=== PATIENT | male | born 2000 | race Caucasian/White ===

== ENCOUNTER 2023-12-10 15:59 | Observation (INO) | payer OTHER ==
--- NOTE | 2023-12-10 16:07 | ERPHSYRPT ---
- History of Present Illness Time Seen by Provider: 12/10/23 16:07 Source: EMS Exam Limitations: clinical condition Physician History: This is a 23-year-old white male patient who was brought to the emergency department by the police lieutenant precinct service. The patient lives in [place] and is staying at one of the local hotels because he is working at a job in this area. The patient's called the police to do a welfare check on adult. The last time the patient's spoke to her was approximately 8:30 PM last night. He did not show up for work and she has been unable to contact him. When the law enforcement showed up, patient had altered mental status. Patient was found to have "candy bar" of both mushrooms and THC. Patient's spouse says that he does not ordinarily do these things but is working with people that do. Upon arrival to the emergency department, the patient's vital signs are stable. He is mildly lethargic but does awaken to voice is. He seems confused. Patient is not answering questions at this time. However, he is aware that we need a urine specimen and when we opened up a Spivey catheter kit, he knew what the Spivey catheter is and was refusing placement. There is no history of medical issues at this time. There is also no history of head trauma at this time. It is unclear at this time whether this was a suicide attempt or simply taking the "candy bars" for recreational purposes. Again, the patient's spouse says that he does not, as far she knows uses recreational drugs. She also states she does not think he is suicidal. Timing/Duration: today Severity of Symptoms-Max: moderate Severity of Symptoms-Current: moderate Context related to: other Suicidal thoughts: ingestion Associated Symptoms: confused (Clear at this time), other (Mildly lethargic) Previous symptoms: no prior history, no recent treatment Allergies/Adverse Reactions: No Known Drug Allergies Allergy (Unverified 12/10/23 16:04) Home Medications: No Reportable Medications [No Reported Medications] 12/10/23 [History] Travel Risk - International Travel Have you traveled outside of the country in past 3 weeks: No - Emerging Infectious Disease Are you exhibiting symptoms associated with any current EIDs: No - Vaccine Status Hx Covid Vaccintation/Booster/Date Given: No - Past Medical History Pertinent Past Medical History: No Neurological History: No Pertinent History ENT History: No Pertinent History Cardiac History: No Pertinent History Respiratory History: No Pertinent History Endocrine Medical History: No Pertinent History Musculoskeletal History: No Pertinent History GI Medical History: No Pertinent History History: No Pertinent History Psycho-Social History: No Pertinent History Male Reproductive Disorders: No Pertinent History - Past Surgical History Past Surgical History: No - Review of Systems Constitutional: Lethargy (Mild) Eyes: No Symptoms Ears, Nose, & Throat: No Symptoms Respiratory: No Symptoms Cardiac: No Symptoms Abdominal/Gastrointestinal: No Symptoms Genitourinary Symptoms: No Symptoms Musculoskeletal: No Symptoms Skin: No Symptoms Neurological: Lethargy (Mild with confusion) Psychological: No Symptoms Endocrine: No Symptoms Hematologic/Lymphatic: No Symptoms Immunological/Allergic: No Symptoms All Other Systems: Reviewed and Negative - Nursing Vital Signs Nursing Vital Signs: Initial Vital Signs Temperature 97.6 F 12/10/23 16:08 Pulse Rate 87 12/10/23 16:08 Respiratory Rate 15 12/10/23 16:08 Blood Pressure 106/70 12/10/23 16:08 O2 Sat by Pulse Oximetry 93 L 12/10/23 16:08 Pain Scale Pain Intensity 0 - Physical Exam General Appearance: no apparent distress, lethargy (Mild), obese Eyes, Ears, Nose, Throat Exam: normal ENT inspection, TMs normal, moist mucous membranes Neck Exam: normal inspection, non-tender, supple, full range of motion Respiratory Exam: normal breath sounds, lungs clear, No chest tenderness, No respiratory distress Cardiovascular Exam: regular rate/rhythm, normal heart sounds, normal peripheral pulses Gastrointestinal/Abdominal Exam: soft, normal bowel sounds, No tenderness Neurological Exam: floor tech II-XII nml as tested (Mildly lethargic. Patient is confused and difficult to assess him neurologically. He is moving all his extremities and does not appear to have a focal neurologic issue at this time), anxious Behavior/Eye Contact/Speech: good eye contact, intoxicated appearance Skin Exam: normal color, warm, dry SpO2 Interpretation: normal O2 Delivery: Room Air - Course Nursing assessment & vital signs reviewed: Yes EKG Interpreted by Me: RATE (80), Sinus Rhythm, NORMAL AXIS, NORMAL INTERVALS, NORMAL QRS, NORMAL ST-T, Other (No acute ischemic changes on today's twelve-lead EKG. There are no comparison twelve-lead EKGs available) Ordered Tests: Active Orders 24 hr Category Date Time Status Ice House Supervisor STAT Care 12/10/23 16:08 Active EKG-ER Only STAT Care 12/10/23 16:07 Active IV Insertion STAT Care 12/10/23 16:07 Active POCT Glucose Check STAT Care 12/10/23 16:07 Active cath [Cath for Specimen-Straight] STAT Care 12/10/23 16:18 Active ABDOMEN AND PELVIS W/0 CONTRAS [CT] Stat Exams 12/10/23 18:58 Taken HEAD WITHOUT CONTRAST [CT] Stat Exams 12/10/23 16:08 Completed ACETAMINOPHEN Stat Lab 12/10/23 16:25 Completed CBC W DIFF Stat Lab 12/10/23 16:07 Completed CK-Creatinine Phosphokinase Stat Lab 12/10/23 16:42 Completed CMP Stat Lab 12/10/23 16:25 Completed CMP Stat Lab 12/10/23 22:45 Completed CULTURE,URINE Stat Lab 12/10/23 16:18 Received ETHYL ALCOHOL Stat Lab 12/10/23 16:25 Completed SALICYLATE Stat Lab 12/10/23 16:25 Completed UA W/RFX UR CULTURE Stat Lab 12/10/23 16:18 Completed Urine Triage Profile Stat Lab 12/10/23 16:18 Completed Medication Summary Discontinued Medications Generic Name Dose Route Start Last Admin Trade Name Freq PRN Reason Stop Dose Admin Sodium Chloride 1,000 mls @ 999 mls/hr 12/10/23 16:07 12/10/23 17:29 Sodium Chloride 0.9% 1000 Ml IV 12/10/23 17:07 Infused .Q1H1M STA Infusion Sodium Chloride Confirm 12/10/23 16:20 Sodium Chloride 0.9% 1000 Ml Administered 12/10/23 16:21 Dose 1,000 mls @ ud .ROUTE .STK-MED ONE Sodium Chloride 1,000 mls @ 999 mls/hr 12/10/23 21:05 12/10/23 22:12 Sodium Chloride 0.9% 1000 Ml IV 12/10/23 22:05 Infused .Q1H1M STA Infusion Sodium Chloride Confirm 12/10/23 21:10 Sodium Chloride 0.9% 1000 Ml Administered 12/10/23 21:11 Dose 1,000 mls @ ud .ROUTE .STK-MED ONE Ondansetron HCl 4 mg 12/10/23 16:07 12/10/23 16:28 Ondansetron Hcl 4 Mg/2 Ml Vial IV 12/10/23 16:08 4 mg STAT ONE Administration Ondansetron HCl Confirm 12/10/23 16:20 Ondansetron Hcl 4 Mg/2 Ml Vial Administered 12/10/23 16:21 Dose 4 mg .ROUTE .[facility]-MED ONE Lab/Rad Data: Laboratory Result Diagrams 12/10/23 16:07 12/10/23 22:45 Laboratory Results 12/10/23 12/10/23 12/10/23 Range/Units 22:45 16:42 16:25 WBC (4.0-10.5) x10^3/uL RBC (4.1-5.6) x10^6/uL Hgb (12.5-18.0) g/dL Hct (42-50) % MCV (78-100) fL MCH (26-32) pg MCHC (32-36) g/dL RDW (11.5-14.0) % Plt Count (150-450) x10^3/uL MPV (7.5-11.0) fL Gran % (36.0-66.0) % Immature Gran % (Auto) (0.00-0.4) % Nucleat RBC Rel Count (0.00-0.1) % Eos # (Auto) (0-0.5) x10^3/uL Immature Gran # (Auto) (0.00-0.03) x10^3u/L Absolute Lymphs (auto) (1.0-4.6) x10^3/uL Absolute Monos (auto) (0.0-1.3) x10^3/uL Absolute Nucleated RBC (0.00-0.01) x10^3u/L Lymphocytes % (24.0-44.0) % Monocytes % (0.0-12.0) % Eosinophils % (0.00-5.0) % Basophils % (0.0-0.4) % Absolute Granulocytes (1.4-6.9) x10^3/uL Basophils # (0-0.4) x10^3/uL Sodium 143 (135-145) mmol/L Potassium 4.5 (3.5-5.1) mmol/L Chloride 110 H (98-107) mmol/L Carbon Dioxide 26 (22-30) mmol/L Anion Gap 11.5 (5-15) MEQ/L BUN 20 (9-20) mg/dL Creatinine 0.88 (0.66-1.25) mg/dL Estimated GFR 123.1 ML/MIN Glucose 92 (74-106) mg/dL Calcium 8.7 (8.4-10.2) mg/dL Total Bilirubin 1.60 H (0.2-1.3) mg/dL AST 160 H (17-59) U/L ALT 312 H (0-50) U/L Alkaline Phosphatase 59 (38-126) U/L Ammonia (9-30) umol/L Creatine Kinase 105 (55-170) U/L Serum Total Protein 6.7 (6.3-8.2) g/dL Albumin 4.0 (3.5-5.0) g/dL Urine Color (Yellow) Urine Appearance (Clear) Urine pH (4.6-8.0) Ur Specific [place] (1.005-1.030) Urine Protein (Negative) Urine Glucose (UA) (Negative) mg/dL Urine Ketones (Negative) Urine Blood (Negative) Urine Nitrite (Negative) Urine Bilirubin (Negative) Urine Urobilinogen (0.2) mg/dL Ur Leukocyte Esterase (Negative) U Hyaline Cast (Auto) (0-2) /LPF Urine Microscopic RBC (0-5) /HPF Urine Microscopic WBC (0-5) /HPF Ur Epithelial Cells (None Seen) /HPF Urine Bacteria (None Seen) /HPF Urine Culture Reflexed (NO) Salicylates (2-20) mg/dL Urine Opiates Level (NEGATIVE) Ur Methadone (NEGATIVE) Acetaminophen (10-30) ug/ml Urine Barbiturates (NEGATIVE) Ur Phencyclidine (PCP) (NEGATIVE) Urine Amphetamine (NEGATIVE) U Benzodiazepine Level (NEGATIVE) Urine Cocaine (NEGATIVE) Urine Marijuana (THC) (NEGATIVE) Ethyl Alcohol (0-10) mg/dL Influenza Type A Ag NEGATIVE (NEGATIVE) Influenza Type B Ag NEGATIVE (NEGATIVE) RSV (PCR) NEGATIVE (NEGATIVE) SARS-CoV-2 (PCR) NEGATIVE (NEGATIVE) 12/10/23 12/10/23 12/10/23 Range/Units 16:25 16:25 16:18 WBC (4.0-10.5) x10^3/uL RBC (4.1-5.6) x10^6/uL Hgb (12.5-18.0) g/dL Hct (42-50) % MCV (78-100) fL MCH (26-32) pg MCHC (32-36) g/dL RDW (11.5-14.0) % Plt Count (150-450) x10^3/uL MPV (7.5-11.0) fL Gran % (36.0-66.0) % Immature Gran % (Auto) (0.00-0.4) % Nucleat RBC Rel Count (0.00-0.1) % Eos # (Auto) (0-0.5) x10^3/uL Immature Gran # (Auto) (0.00-0.03) x10^3u/L Absolute Lymphs (auto) (1.0-4.6) x10^3/uL Absolute Monos (auto) (0.0-1.3) x10^3/uL Absolute Nucleated RBC (0.00-0.01) x10^3u/L Lymphocytes % (24.0-44.0) % Monocytes % (0.0-12.0) % Eosinophils % (0.00-5.0) % Basophils % (0.0-0.4) % Absolute Granulocytes (1.4-6.9) x10^3/uL Basophils # (0-0.4) x10^3/uL Sodium 142 (135-145) mmol/L Potassium 4.0 (3.5-5.1) mmol/L Chloride 107 (98-107) mmol/L Carbon Dioxide 24 (22-30) mmol/L Anion Gap 15.3 H (5-15) MEQ/L BUN 24 H (9-20) mg/dL Creatinine 1.07 (0.66-1.25) mg/dL Estimated GFR 99.4 ML/MIN Glucose 148 H (74-106) mg/dL Calcium 9.3 (8.4-10.2) mg/dL Total Bilirubin 1.80 H (0.2-1.3) mg/dL AST 140 H (17-59) U/L ALT 224 H (0-50) U/L Alkaline Phosphatase 65 (38-126) U/L Ammonia < 9 L (9-30) umol/L Creatine Kinase (55-170) U/L Serum Total Protein 7.7 (6.3-8.2) g/dL Albumin 4.7 (3.5-5.0) g/dL Urine Color (Yellow) Urine Appearance (Clear) Urine pH (4.6-8.0) Ur Specific [place] (1.005-1.030) Urine Protein (Negative) Urine Glucose (UA) (Negative) mg/dL Urine Ketones (Negative) Urine Blood (Negative) Urine Nitrite (Negative) Urine Bilirubin (Negative) Urine Urobilinogen (0.2) mg/dL Ur Leukocyte Esterase (Negative) U Hyaline Cast (Auto) (0-2) /LPF Urine Microscopic RBC (0-5) /HPF Urine Microscopic WBC (0-5) /HPF Ur Epithelial Cells (None Seen) /HPF Urine Bacteria (None Seen) /HPF Urine Culture Reflexed (NO) Salicylates < 1.0 L (2-20) mg/dL Urine Opiates Level NEGATIVE (NEGATIVE) Ur Methadone NEGATIVE (NEGATIVE) Acetaminophen < 10 L (10-30) ug/ml Urine Barbiturates NEGATIVE (NEGATIVE) Ur Phencyclidine (PCP) NEGATIVE (NEGATIVE) Urine Amphetamine NEGATIVE (NEGATIVE) U Benzodiazepine Level NEGATIVE (NEGATIVE) Urine Cocaine NEGATIVE (NEGATIVE) Urine Marijuana (THC) POSITIVE A (NEGATIVE) Ethyl Alcohol < 10 (0-10) mg/dL Influenza Type A Ag (NEGATIVE) Influenza Type B Ag (NEGATIVE) RSV (PCR) (NEGATIVE) SARS-CoV-2 (PCR) (NEGATIVE) 12/10/23 12/10/23 Range/Units 16:18 16:07 WBC 12.3 H (4.0-10.5) x10^3/uL RBC 4.59 (4.1-5.6) x10^6/uL Hgb 14.6 (12.5-18.0) g/dL Hct 43.1 (42-50) % MCV 93.9 (78-100) fL MCH 31.8 (26-32) pg MCHC 33.9 (32-36) g/dL RDW 13.2 (11.5-14.0) % Plt Count 275 (150-450) x10^3/uL MPV 10.3 (7.5-11.0) fL Gran % 86.8 H (36.0-66.0) % Immature Gran % (Auto) 0.5 H (0.00-0.4) % Nucleat RBC Rel Count 0.0 (0.00-0.1) % Eos # (Auto) 0 (0-0.5) x10^3/uL Immature Gran # (Auto) 0.06 H (0.00-0.03) x10^3u/L Absolute Lymphs (auto) 0.90 L (1.0-4.6) x10^3/uL Absolute Monos (auto) 0.64 (0.0-1.3) x10^3/uL Absolute Nucleated RBC 0.00 (0.00-0.01) x10^3u/L Lymphocytes % 7.3 L (24.0-44.0) % Monocytes % 5.2 (0.0-12.0) % Eosinophils % 0.0 (0.00-5.0) % Basophils % 0.2 (0.0-0.4) % Absolute Granulocytes 10.68 H (1.4-6.9) x10^3/uL Basophils # 0.02 (0-0.4) x10^3/uL Sodium (135-145) mmol/L Potassium (3.5-5.1) mmol/L Chloride (98-107) mmol/L Carbon Dioxide (22-30) mmol/L Anion Gap (5-15) MEQ/L BUN (9-20) mg/dL Creatinine (0.66-1.25) mg/dL Estimated GFR ML/MIN Glucose (74-106) mg/dL Calcium (8.4-10.2) mg/dL Total Bilirubin (0.2-1.3) mg/dL AST (17-59) U/L ALT (0-50) U/L Alkaline Phosphatase (38-126) U/L Ammonia (9-30) umol/L Creatine Kinase (55-170) U/L Serum Total Protein (6.3-8.2) g/dL Albumin (3.5-5.0) g/dL Urine Color Yellow (Yellow) Urine Appearance Clear (Clear) Urine pH 6.0 (4.6-8.0) Ur Specific [place] 1.020 (1.005-1.030) Urine Protein Negative (Negative) Urine Glucose (UA) Negative (Negative) mg/dL Urine Ketones Negative (Negative) Urine Blood Negative (Negative) Urine Nitrite Negative (Negative) Urine Bilirubin Negative (Negative) Urine Urobilinogen 1.0 A (0.2) mg/dL Ur Leukocyte Esterase Trace A (Negative) U Hyaline Cast (Auto) 3-5 A (0-2) /LPF Urine Microscopic RBC 0-2 (0-5) /HPF Urine Microscopic WBC 0-2 (0-5) /HPF Ur Epithelial Cells Rare (None Seen) /HPF Urine Bacteria None Seen (None Seen) /HPF Urine Culture Reflexed ORDERED SEPARATELY (NO) Salicylates (2-20) mg/dL Urine Opiates Level (NEGATIVE) Ur Methadone (NEGATIVE) Acetaminophen (10-30) ug/ml Urine Barbiturates (NEGATIVE) Ur Phencyclidine (PCP) (NEGATIVE) Urine Amphetamine (NEGATIVE) U Benzodiazepine Level (NEGATIVE) Urine Cocaine (NEGATIVE) Urine Marijuana (THC) (NEGATIVE) Ethyl Alcohol (0-10) mg/dL Influenza Type A Ag (NEGATIVE) Influenza Type B Ag (NEGATIVE) RSV (PCR) (NEGATIVE) SARS-CoV-2 (PCR) (NEGATIVE) - Progress Progress: improved, re-examined Progress Note: 12/10/23 16:30 This patient's medical issue was at least moderate complexity. Depending on the initial workup results and response to our therapy, the patient may have a high complexity medical issue. The initial workup and complexity of his medical issue in this patient is based on review of the patient's past medical history, review of patient's medication list, review of patient drug allergy list, history present illness and physical findings on examination. The workup in this patient includes placement of intravenous line, infusion normal saline solution, infusion of Zofran, CBC, CMP, urinalysis, salicylate level, acetaminophen level, ethyl alcohol level, urinalysis, urine triage, CT scan of the head, ammonia level, viral swabs. We will also contact Poison Control Center. 12/10/23 16:53 The Poison Control Center was contacted by nurse Benjamin. They are sending over recommendations for management of this patient. Briefly, a summary, includes IV hydration, watch for signs of agitation and treat with benzodiazepines. Avoid antipsychotics. Perform a twelve-lead EKG and CMP. Observe this patient until he is back to baseline. 12/10/23 20:19 I did interpret the patient's laboratory data results that have returned thus far. There is mildly elevated liver function test. We do not have baseline levels in this patient. Poison control did discuss with the instructional assistant regarding the "candy bars", that the patient ingested. One of the thoughts was to watch the liver function test after hydration. If the LFT levels are rising to treat this patient with N-acetylcysteine. The mushroom candy bar may have amanita mushroom and it which could cause significant hepatotoxicity. My plan is to do just that and to order a CT scan of the abdomen pelvis. CT scan of the abdomen pelvis without contrast was interpreted by the radiologist and I reviewed the impression. The impression states there is respiratory artifact. There is moderate bibasilar atelectasis. The remaining abdominal and pelvic CT scan without contrast is within normal limits. 12/10/23 20:55 CT scan of the head was interpreted by the radiologist and I reviewed the impression. Impression states normal CT scan of the head without contrast. 12/10/23 23:[address] Marti, the telehospitalist and reviewed the patient history, chief complaint, laboratory data, radiographic study results and twelve-lead EKG results. I also spoke with him regarding the Poison Control Center recommendations. He accepts the patient in transfer. Vero, in the Poison Control Center called back just a few minutes ago and her instructional assistant has reviewed the patient's laboratory data results and they recommend starting the N-acetylcysteine medication and they we will be faxing over the dosing and the recommended timing of obtaining repeat laboratory data. Counseled pt/family regarding: lab results, diagnosis, need for follow-up, rad results Medical Desision Making - Independent Historian Additional History obtained from: Spouse (By phone the nurses obtained additional history from the spouse. The patient has altered mental status and is unable to provide us with information on admission.) - Discussion of managment Care discussed with:: specialist (Poison Control Center. Spoke with Vero twice. After review of the repeat LFTs, instructional assistant recommends starting N-[place] tylcysteine. I spoke with Dr. Marti and he is aware.) Reviewed:: Test results, Need for additional workup Agreed on:: decision to admit Will see patient: in hospital - Diagnostic Testing Diagnostic test were ordered, analyzed, and reviewed by me: Yes Radiological Interpretation: Reviewed by me, Teleradiologist Report - Risk of complications The pt has a high risk of morbidity or mortality based on: Decision regarding hospitilization or escalation of hosp level of care - Departure Departure Disposition: In-patient Admission Clinical Impression: Overdose, Altered mental status Condition: Fair Critical Care Time: Yes Critical Care Time(excluding separately billable procedures): Critical 30-74 mins (45 minutes) Referrals: DOCTOR,NO FAMILY [NON-STAFF PHY W/O PRIVILEGES] - Follow up/PCP as directed
[2023-12-10] MEDS ORDERED: Sodium Chloride 0.9% 1000 ML 1,000 ML ONE ×2 (16:20→21:10)
[2023-12-10] MEDS ORDERED: Zofran 4 MG/2 ML VIAL ONE (16:20)
[2023-12-10] MEDS: Sodium Chloride 0.9% 1000 ML 1,000 ML IV STA ×2 (16:27→21:11)
[2023-12-10] MEDS: Zofran 4 MG/2 ML VIAL IV ONE (16:28)
[2023-12-10 16:34] LABS: Absolute Neutrophil Ct (ANC) 10.68 x10^3/uL (1.4-6.9); BASOPHIL % 0.2 % (0.0-0.4); Basophil (Absolute #) 0.02 x10^3/uL (0-0.4); Eosinophil (Absolute #) 0 x10^3/uL (0-0.5); Hematocrit 43.1 % (42-50); Hemoglobin 14.6 g/dL (12.5-18.0); IMMATURE GRAN # 0.06 x10^3u/L (0.00-0.03); IMMATURE GRAN % 0.5 % (0.00-0.4); Lymphocytes % 7.3 % (24.0-44.0); Mean Cell Volume 93.9 fL (78-100); Mean Corpuscular Hemoglobin 31.8 pg (26-32); Mean Corpuscular Hgb Concent. 33.9 g/dL (32-36); Mean Platelet Volume 10.3 fL (7.5-11.0); Monocyte (Absolute #) 0.64 x10^3/uL (0.0-1.3); Monocytes % 5.2 % (0.0-12.0); Neutrophil % 86.8 % (36.0-66.0); Platelet Count 275 x10^3/uL (150-450); Red Blood Count 4.59 x10^6/uL (4.1-5.6); Red Cell Distribution Width 13.2 % (11.5-14.0); White Blood Count 12.3 x10^3/uL (4.0-10.5)
[2023-12-10 16:52] LABS: Appearance Clear (Clear); Bacteria None Seen /HPF (None Seen); Bilirubin Negative (Negative); Blood Negative (Negative); Epithelial Cells Rare /HPF (None Seen); Glucose, Urine Negative (Negative); Ketones Negative (Negative); Leukocyte Esterase Trace (Negative); Nitrite Negative (Negative); Protein,Urine Dip Negative (Negative); RBC 0-2 /HPF (0-5); WBC 0-2 /HPF (0-5)
[2023-12-10 16:55] LABS: ADD URINE CULTURE? ORDERED SEPARATELY (NO)
[2023-12-10 17:01] LABS: ACETAMINOPHEN < 10 ug/ml (10-30); ALBUMIN 4.7 g/dL (3.5-5.0); ALKALINE PHOSPHATASE 65 U/L (38-126); ANION GAP 15.3 MEQ/L (5-15); BLOOD UREA NITROGEN 24 mg/dL (9-20); CHLORIDE 107 mmol/L (98-107); Calcium 9.3 mg/dL (8.4-10.2); Carbon Dioxide 24 mmol/L (22-30); Creatinine 1 1.07 mg/dL (0.66-1.25); EST GLOMERULAR FILTRATION RATE 99.4 ML/MIN; ETHYL ALCOHOL < 10 mg/dL (0-10); Glucose 148 mg/dL (74-106); SALICYLATE < 1.0 mg/dL (2-20); SGOT/AST 140 U/L (17-59); SGPT/ALT 224 U/L (0-50); SODIUM 142 mmol/L (135-145); Total Protein 7.7 g/dL (6.3-8.2)
[2023-12-10 17:09] LABS: INFLUENZA A NEGATIVE (NEGATIVE); INFLUENZA B NEGATIVE (NEGATIVE); RESPIRATORY SYNCTIAL VIRUS NEGATIVE (NEGATIVE); SARS-CoV-2 Xpert Express NEGATIVE (NEGATIVE)
[2023-12-10 17:21] LABS: Amphetamine,Urine NEGATIVE (NEGATIVE); Barbiturate,Urine NEGATIVE (NEGATIVE); Benzodiazepine,Urine NEGATIVE (NEGATIVE); Cocaine,Urine NEGATIVE (NEGATIVE); Methadone,Urine NEGATIVE (NEGATIVE); Opiate,Urine NEGATIVE (NEGATIVE); PCP,Urine NEGATIVE (NEGATIVE); THC,Urine POSITIVE (NEGATIVE)
--- NOTE | 2023-12-10 20:22 | XRAY ---
Indication: Altered mental status. No known injury. Multiple contiguous axial images obtained through the head without contrast. Comparison: None Normal appearing brain parenchyma, ventricles, and bony calvarium. Visualized paranasal sinuses and mastoid air cells are clear. Impression: Normal CT head without contrast exam.
[2023-12-10 23:08] LABS: ANION GAP 11.5 MEQ/L (5-15); BILIRUBIN,TOTAL 1.6 mg/dL (0.2-1.3); Calcium 8.7 mg/dL (8.4-10.2); Creatinine 1 0.88 mg/dL (0.66-1.25); EST GLOMERULAR FILTRATION RATE 123.1 ML/MIN; Potassium 4.5 mmol/L (3.5-5.1); Total Protein 6.7 g/dL (6.3-8.2)
[2023-12-11] MEDS ORDERED: Zofran 4 MG/2 ML VIAL IV PRN (00:39)
--- NOTE | 2023-12-11 00:49 | PCM.HP ---
History of Present Illness - Chief Complaint Chief Complaint: AMS History of Present Illness: is a 23 year old male with no past medical history, travelling from [place] to the area for work, and was brought in by EMS for AMS. His tried to call him all day and could not get in touch with him. So police went to the hotel for welfare check and found pt to be lethargic/altered. They found 2 "candy bars" at bedside - one was THC and the other was "mushroom". In ER, pt was lethargic but vital signs were normal and stable. He was able to maintain his airway. He was given IVF boluses, and he did come around some mentally. He did refused lewis catheter placement. Labs shows mildly elevated AST/ALT/Bili. UDS + THC. Etoh negative. CTs head and abdomen were negative. Poison control was contacted by ER physician. They do recommend treatment with N-acetylcysteine (NAC) or activated charcoal - posion control has to send these over and the recommended doses. They have been talking with Dr Zaman, ER physician. Plan to admit the pt to ICU I am seeing pt via telemedicine. He is somnolent, but wakes up to converse. He does not appear septic on my exam - Review of Systems Constitutional: No Symptoms Eyes: No Symptoms Ears, Nose, & Throat: No Symptoms Respiratory: No Symptoms Abdominal/Gastrointestinal: No Symptoms Genitourinary Symptoms: No Symptoms Musculoskeletal: No Symptoms Skin: No Symptoms Neurological: Lethargy Psychological: No Symptoms Endocrine: No Symptoms Hematologic/Lymphatic: No Symptoms Immunological/Allergic: No Symptoms Medications & Allergies Home Medications: Home Medication List No Reportable Medications [No Reported Medications] 12/10/23 [History Confirmed 12/10/23] Allergies/Adverse Reactions: Allergies Allergy/AdvReac Type Severity Reaction Status Date / Time No Known Drug Allergies Allergy Unverified 12/10/23 16:04 - Past Medical History Past Medical History: No Neurological History: No Pertinent History ENT History: No Pertinent History Cardiac History: No Pertinent History Respiratory History: No Pertinent History Endocrine Medical History: No Pertinent History Musculoskelatal History: No Pertinent History GI Medical History: No Pertinent History History: No Pertinent History Pyscho-Social History: No Pertinent History Male Reproductive Disorders: No Pertinent History Comment: Poor historian - Past Surgical History Past Surgical History: No GI Surgical History: Appendectomy Other Surgical History: Poor historian Significant Family History: alpha-1 antitrypsin deficiency - Social History Smoking Status: Unknown if ever smoked Exposure to second hand smoke: (unknown) - Social Determinants of Health Will the patient participate in the screening: Unable to obtain - Physical Exam Vital Signs: Vital Signs - 24 hr Temp Pulse Resp BP BP Pulse Ox 12/11/23 00:00 98/53 12/10/23 23:45 99/56 12/10/23 23:30 106/60 12/10/23 23:15 112/68 12/10/23 23:00 78 126/69 95 12/10/23 22:30 80 119/75 96 12/10/23 22:18 77 25 H 106/61 12/10/23 22:16 67/43 12/10/23 22:07 86 93/50 96 12/10/23 22:00 60 12 86/41 95 12/10/23 21:56 74 21 81/50 12/10/23 21:35 71 17 92/45 96 12/10/23 21:30 82 15 90/37 12/10/23 21:01 68 14 91/42 95 12/10/23 21:00 70 15 88/38 12/10/23 20:30 70 19 93/38 12/10/23 20:00 68 12 96/44 96 12/10/23 19:00 72 12 91/53 12/10/23 18:30 76 12 98/56 95 12/10/23 18:00 76 15 110/62 94 L 12/10/23 17:30 77 13 107/57 94 L 12/10/23 17:00 79 13 102/59 93 L 12/10/23 16:08 97.6 F 87 15 106/70 93 L General Appearance: no apparent distress, lethargy Eye Exam: eyes nml inspection Ears, Nose, Throat Exam: normal ENT inspection Neck Exam: normal inspection, supple, full range of motion Respiratory Exam: normal breath sounds, lungs clear Cardiovascular Exam: regular rate/rhythm, normal heart sounds Gastrointestinal/Abdomen Exam: soft, normal bowel sounds Rectal Exam: deferred Extremity Exam: normal inspection Skin Exam: normal color Results - Labs Lab/Micro Results: Lab Results-Last 24 Hours 12/10/23 12/10/23 12/10/23 Range/Units 16:07 16:18 16:18 WBC 12.3 H (4.0-10.5) x10^3/uL RBC 4.59 (4.1-5.6) x10^6/uL Hgb 14.6 (12.5-18.0) g/dL Hct 43.1 (42-50) % MCV 93.9 (78-100) fL MCH 31.8 (26-32) pg MCHC 33.9 (32-36) g/dL RDW 13.2 (11.5-14.0) % Plt Count 275 (150-450) x10^3/uL MPV 10.3 (7.5-11.0) fL Gran % 86.8 H (36.0-66.0) % Immature Gran % (Auto) 0.5 H (0.00-0.4) % Nucleat RBC Rel Count 0.0 (0.00-0.1) % Eos # (Auto) 0 (0-0.5) x10^3/uL Immature Gran # (Auto) 0.06 H (0.00-0.03) x10^3u/L Absolute Lymphs (auto) 0.90 L (1.0-4.6) x10^3/uL Absolute Monos (auto) 0.64 (0.0-1.3) x10^3/uL Absolute Nucleated RBC 0.00 (0.00-0.01) x10^3u/L Lymphocytes % 7.3 L (24.0-44.0) % Monocytes % 5.2 (0.0-12.0) % Eosinophils % 0.0 (0.00-5.0) % Basophils % 0.2 (0.0-0.4) % Absolute Granulocytes 10.68 H (1.4-6.9) x10^3/uL Basophils # 0.02 (0-0.4) x10^3/uL Sodium (135-145) mmol/L Potassium (3.5-5.1) mmol/L Chloride (98-107) mmol/L Carbon Dioxide (22-30) mmol/L Anion Gap (5-15) MEQ/L BUN (9-20) mg/dL Creatinine (0.66-1.25) mg/dL Estimated GFR ML/MIN Glucose (74-106) mg/dL Calcium (8.4-10.2) mg/dL Total Bilirubin (0.2-1.3) mg/dL AST (17-59) U/L ALT (0-50) U/L Alkaline Phosphatase (38-126) U/L Ammonia (9-30) umol/L Creatine Kinase (55-170) U/L Serum Total Protein (6.3-8.2) g/dL Albumin (3.5-5.0) g/dL Urine Color Yellow (Yellow) Urine Appearance Clear (Clear) Urine pH 6.0 (4.6-8.0) Ur Specific [place] 1.020 (1.005-1.030) Urine Protein Negative (Negative) Urine Glucose (UA) Negative (Negative) mg/dL Urine Ketones Negative (Negative) Urine Blood Negative (Negative) Urine Nitrite Negative (Negative) Urine Bilirubin Negative (Negative) Urine Urobilinogen 1.0 A (0.2) mg/dL Ur Leukocyte Esterase Trace A (Negative) U Hyaline Cast (Auto) 3-5 A (0-2) /LPF Urine Microscopic RBC 0-2 (0-5) /HPF Urine Microscopic WBC 0-2 (0-5) /HPF Ur Epithelial Cells Rare (None Seen) /HPF Urine Bacteria None Seen (None Seen) /HPF Urine Culture Reflexed ORDERED SEPARATELY (NO) Salicylates (2-20) mg/dL Urine Opiates Level NEGATIVE (NEGATIVE) Ur Methadone NEGATIVE (NEGATIVE) Acetaminophen (10-30) ug/ml Urine Barbiturates NEGATIVE (NEGATIVE) Ur Phencyclidine (PCP) NEGATIVE (NEGATIVE) Urine Amphetamine NEGATIVE (NEGATIVE) U Benzodiazepine Level NEGATIVE (NEGATIVE) Urine Cocaine NEGATIVE (NEGATIVE) Urine Marijuana (THC) POSITIVE A (NEGATIVE) Ethyl Alcohol (0-10) mg/dL Influenza Type A Ag (NEGATIVE) Influenza Type B Ag (NEGATIVE) RSV (PCR) (NEGATIVE) SARS-CoV-2 (PCR) (NEGATIVE) 12/10/23 12/10/23 12/10/23 Range/Units 16:25 16:25 16:25 WBC (4.0-10.5) x10^3/uL RBC (4.1-5.6) x10^6/uL Hgb (12.5-18.0) g/dL Hct (42-50) % MCV (78-100) fL MCH (26-32) pg MCHC (32-36) g/dL RDW (11.5-14.0) % Plt Count (150-450) x10^3/uL MPV (7.5-11.0) fL Gran % (36.0-66.0) % Immature Gran % (Auto) (0.00-0.4) % Nucleat RBC Rel Count (0.00-0.1) % Eos # (Auto) (0-0.5) x10^3/uL Immature Gran # (Auto) (0.00-0.03) x10^3u/L Absolute Lymphs (auto) (1.0-4.6) x10^3/uL Absolute Monos (auto) (0.0-1.3) x10^3/uL Absolute Nucleated RBC (0.00-0.01) x10^3u/L Lymphocytes % (24.0-44.0) % Monocytes % (0.0-12.0) % Eosinophils % (0.00-5.0) % Basophils % (0.0-0.4) % Absolute Granulocytes (1.4-6.9) x10^3/uL Basophils # (0-0.4) x10^3/uL Sodium 142 (135-145) mmol/L Potassium 4.0 (3.5-5.1) mmol/L Chloride 107 (98-107) mmol/L Carbon Dioxide 24 (22-30) mmol/L Anion Gap 15.3 H (5-15) MEQ/L BUN 24 H (9-20) mg/dL Creatinine 1.07 (0.66-1.25) mg/dL Estimated GFR 99.4 ML/MIN Glucose 148 H (74-106) mg/dL Calcium 9.3 (8.4-10.2) mg/dL Total Bilirubin 1.80 H (0.2-1.3) mg/dL AST 140 H (17-59) U/L ALT 224 H (0-50) U/L Alkaline Phosphatase 65 (38-126) U/L Ammonia < 9 L (9-30) umol/L Creatine Kinase (55-170) U/L Serum Total Protein 7.7 (6.3-8.2) g/dL Albumin 4.7 (3.5-5.0) g/dL Urine Color (Yellow) Urine Appearance (Clear) Urine pH (4.6-8.0) Ur Specific [place] (1.005-1.030) Urine Protein (Negative) Urine Glucose (UA) (Negative) mg/dL Urine Ketones (Negative) Urine Blood (Negative) Urine Nitrite (Negative) Urine Bilirubin (Negative) Urine Urobilinogen (0.2) mg/dL Ur Leukocyte Esterase (Negative) U Hyaline Cast (Auto) (0-2) /LPF Urine Microscopic RBC (0-5) /HPF Urine Microscopic WBC (0-5) /HPF Ur Epithelial Cells (None Seen) /HPF Urine Bacteria (None Seen) /HPF Urine Culture Reflexed (NO) Salicylates < 1.0 L (2-20) mg/dL Urine Opiates Level (NEGATIVE) Ur Methadone (NEGATIVE) Acetaminophen < 10 L (10-30) ug/ml Urine Barbiturates (NEGATIVE) Ur Phencyclidine (PCP) (NEGATIVE) Urine Amphetamine (NEGATIVE) U Benzodiazepine Level (NEGATIVE) Urine Cocaine (NEGATIVE) Urine Marijuana (THC) (NEGATIVE) Ethyl Alcohol < 10 (0-10) mg/dL Influenza Type A Ag NEGATIVE (NEGATIVE) Influenza Type B Ag NEGATIVE (NEGATIVE) RSV (PCR) NEGATIVE (NEGATIVE) SARS-CoV-2 (PCR) NEGATIVE (NEGATIVE) 12/10/23 12/10/23 Range/Units 16:42 22:45 WBC (4.0-10.5) x10^3/uL RBC (4.1-5.6) x10^6/uL Hgb (12.5-18.0) g/dL Hct (42-50) % MCV (78-100) fL MCH (26-32) pg MCHC (32-36) g/dL RDW (11.5-14.0) % Plt Count (150-450) x10^3/uL MPV (7.5-11.0) fL Gran % (36.0-66.0) % Immature Gran % (Auto) (0.00-0.4) % Nucleat RBC Rel Count (0.00-0.1) % Eos # (Auto) (0-0.5) x10^3/uL Immature Gran # (Auto) (0.00-0.03) x10^3u/L Absolute Lymphs (auto) (1.0-4.6) x10^3/uL Absolute Monos (auto) (0.0-1.3) x10^3/uL Absolute Nucleated RBC (0.00-0.01) x10^3u/L Lymphocytes % (24.0-44.0) % Monocytes % (0.0-12.0) % Eosinophils % (0.00-5.0) % Basophils % (0.0-0.4) % Absolute Granulocytes (1.4-6.9) x10^3/uL Basophils # (0-0.4) x10^3/uL Sodium 143 (135-145) mmol/L Potassium 4.5 (3.5-5.1) mmol/L Chloride 110 H (98-107) mmol/L Carbon Dioxide 26 (22-30) mmol/L Anion Gap 11.5 (5-15) MEQ/L BUN 20 (9-20) mg/dL Creatinine 0.88 (0.66-1.25) mg/dL Estimated GFR 123.1 ML/MIN Glucose 92 (74-106) mg/dL Calcium 8.7 (8.4-10.2) mg/dL Total Bilirubin 1.60 H (0.2-1.3) mg/dL AST 160 H (17-59) U/L ALT 312 H (0-50) U/L Alkaline Phosphatase 59 (38-126) U/L Ammonia (9-30) umol/L Creatine Kinase 105 (55-170) U/L Serum Total Protein 6.7 (6.3-8.2) g/dL Albumin 4.0 (3.5-5.0) g/dL Urine Color (Yellow) Urine Appearance (Clear) Urine pH (4.6-8.0) Ur Specific [place] (1.005-1.030) Urine Protein (Negative) Urine Glucose (UA) (Negative) mg/dL Urine Ketones (Negative) Urine Blood (Negative) Urine Nitrite (Negative) Urine Bilirubin (Negative) Urine Urobilinogen (0.2) mg/dL Ur Leukocyte Esterase (Negative) U Hyaline Cast (Auto) (0-2) /LPF Urine Microscopic RBC (0-5) /HPF Urine Microscopic WBC (0-5) /HPF Ur Epithelial Cells (None Seen) /HPF Urine Bacteria (None Seen) /HPF Urine Culture Reflexed (NO) Salicylates (2-20) mg/dL Urine Opiates Level (NEGATIVE) Ur Methadone (NEGATIVE) Acetaminophen (10-30) ug/ml Urine Barbiturates (NEGATIVE) Ur Phencyclidine (PCP) (NEGATIVE) Urine Amphetamine (NEGATIVE) U Benzodiazepine Level (NEGATIVE) Urine Cocaine (NEGATIVE) Urine Marijuana (THC) (NEGATIVE) Ethyl Alcohol (0-10) mg/dL Influenza Type A Ag (NEGATIVE) Influenza Type B Ag (NEGATIVE) RSV (PCR) (NEGATIVE) SARS-CoV-2 (PCR) (NEGATIVE) Accuchecks Date 12/10/23 Time 18:33 - Radiology Impressions Radiology Exams & Impressions: Radiology Procedures Category Date Time Status ABDOMEN AND PELVIS W/0 CONTRAS [CT] Stat Exams 12/10/23 18:58 Taken HEAD WITHOUT CONTRAST [CT] Stat Exams 12/10/23 16:08 Completed - Other Procedures and Tests Respiratory Therapy 12/11/23 00:39 EKG REPEAT IN AM Assessment/Plan (1) Altered mental status Current Visit: Yes Status: Acute Assessment & Plan: Likely related to polysubstance abuse - THC and this unknown "mushroom". Supportive measures, VS q4hr, IVF. Code(s): R41.82 - ALTERED MENTAL STATUS, UNSPECIFIED (2) Overdose Current Visit: Yes Status: Acute Assessment & Plan: THC + this unknown "mushroom" candy. Supportive measures. And given hepatotoxicity, poison control recommended treatment with eather activeted charcoal and or NAC. ER physician is in contact with poison control, and said they will be sending these meds over with the recommended doses. Meanwhile, continue supportive measures, IVF, and monitoring of LFTs Code(s): T50.901A - POISONING BY UNSP DRUG/MEDS/BIOL SUBST, ACCIDENTAL, INIT (3) Hepatotoxicity Current Visit: Yes Status: Acute Assessment & Plan: AST 140-160s, ALT 220->312, Bili 1.8->1.6. AP normal. CK normal. CT abd normal. Monitor LFTs Code(s): K71.9 - TOXIC LIVER DISEASE, UNSPECIFIED (4) Leukocytosis Current Visit: Yes Status: Acute Assessment & Plan: WBC 12s. Likely a stress response. No obvious sign of infection. UA clear Code(s): D72.829 - ELEVATED WHITE BLOOD CELL COUNT, UNSPECIFIED (5) Tetrahydrocannabinol (THC) use disorder, mild, abuse Current Visit: Yes Status: Acute Assessment & Plan: UDS + THC, supportive measures. Counseled on cessation Code(s): F12.10 - CANNABIS ABUSE, UNCOMPLICATED Telemedicine Encounter - Telemedicine Encounter Telemedicine Encounter: The entirety of this encounter was performed via Telemedicine" The pt's , Mercedez, was able to give consent to have this telemedicine visit
[2023-12-11] MEDS ORDERED: BENADRYL 50 MG/ML IV PRN (01:19)
[2023-12-11] MEDS ORDERED: solu-MEDROL 125 MG, Sterile H2O 10 ml 2 ML IV PRN (01:20)
[2023-12-11] MEDS: Sodium Chloride 0.9% 1000 ML 1,000 ML IV SCH ×2 (01:30→19:43)
[2023-12-11] MEDS: DEXTROSE IV ONE ×3 (02:36→08:38)
[2023-12-11] MEDS: WATER IV ONE ×3 (02:36→08:38)
[2023-12-11] MEDS: ACETADOTE IV ONE ×3 (02:36→08:38)
[2023-12-11 05:44] LABS: Absolute Neutrophil Ct (ANC) 6.07 x10^3/uL (1.4-6.9); BASOPHIL % 0.1 % (0.0-0.4); Basophil (Absolute #) 0.01 x10^3/uL (0-0.4); Eosinophil % 0.4 % (0.00-5.0); Eosinophil (Absolute #) 0.03 x10^3/uL (0-0.5); Hematocrit 39.4 % (42-50); Hemoglobin 13.3 g/dL (12.5-18.0); IMMATURE GRAN # 0.03 x10^3u/L (0.00-0.03); IMMATURE GRAN % 0.4 % (0.00-0.4); Lymphocyte (Absolute #) 1.15 x10^3/uL (1.0-4.6); Lymphocytes % 14.6 % (24.0-44.0); Mean Cell Volume 94.3 fL (78-100); Mean Corpuscular Hemoglobin 31.8 pg (26-32); Mean Corpuscular Hgb Concent. 33.8 g/dL (32-36); Mean Platelet Volume 10.3 fL (7.5-11.0); Monocyte (Absolute #) 0.56 x10^3/uL (0.0-1.3); Monocytes % 7.1 % (0.0-12.0); Neutrophil % 77.4 % (36.0-66.0); Platelet Count 225 x10^3/uL (150-450); Red Blood Count 4.18 x10^6/uL (4.1-5.6); Red Cell Distribution Width 13.3 % (11.5-14.0); White Blood Count 7.9 x10^3/uL (4.0-10.5)
[2023-12-11 06:16] LABS: ALBUMIN 3.9 g/dL (3.5-5.0); ANION GAP 14.3 MEQ/L (5-15); BLOOD UREA NITROGEN 17 mg/dL (9-20); CHLORIDE 109 mmol/L (98-107); Calcium 8.6 mg/dL (8.4-10.2); Carbon Dioxide 24 mmol/L (22-30); Creatinine 1 0.65 mg/dL (0.66-1.25); EST GLOMERULAR FILTRATION RATE 134.9 ML/MIN; Glucose 116 mg/dL (74-106); SGOT/AST 123 U/L (17-59); SGPT/ALT 316 U/L (0-50); SODIUM 143 mmol/L (135-145); Total Protein 6.4 g/dL (6.3-8.2)
[2023-12-11 06:41] LABS: ALKALINE PHOSPHATASE < 20 U/L (38-126)
--- NOTE | 2023-12-11 08:29 | XRAY ---
Indication: Elevated LFTs. Multiple contiguous axial images obtained through the abdomen and pelvis without contrast. Comparison: None Chest and abdomen slightly degraded by respiration artifact. Lung bases images moderate bibasilar subsegmental atelectasis, left greater than right. No effusion. Heart not enlarged. Noncontrasted stomach and bowel loops appear nonobstructed. Appendix not seen but there is suture material in the expected region of the appendix. No free fluid/air. Remaining liver, gallbladder, pancreas, spleen, adrenal glands, kidneys, ureters, bladder, and aorta are unremarkable for noncontrast exam. Osseous structures intact. No ventral or inguinal hernias. Impression: 1. Respiration artifact. 2. Bibasilar subsegmental atelectasis. 3. Remaining CT abdomen/pelvis without contrast is grossly negative.
[2023-12-11] MEDS: ENOXAPARIN SODIUM SQ SCH (10:20)
[2023-12-11 22:54] LABS: PROTIME 10.9 SECONDS (9.4-12.5)
[2023-12-11 23:03] LABS: ACETAMINOPHEN < 10 ug/ml (10-30); ALBUMIN 3.5 g/dL (3.5-5.0); ALKALINE PHOSPHATASE 53 U/L (38-126); ANION GAP 10.8 MEQ/L (5-15); BLOOD UREA NITROGEN 14 mg/dL (9-20); CHLORIDE 111 mmol/L (98-107); Calcium 8.5 mg/dL (8.4-10.2); Carbon Dioxide 23 mmol/L (22-30); Creatinine 1 0.76 mg/dL (0.66-1.25); EST GLOMERULAR FILTRATION RATE 128.7 ML/MIN; Glucose 123 mg/dL (74-106); Potassium 3.4 mmol/L (3.5-5.1); SGOT/AST 60 U/L (17-59); SGPT/ALT 233 U/L (0-50); SODIUM 142 mmol/L (135-145)
[2023-12-11] MEDS: Klor Con PO ONE (23:39)
[2023-12-12 05:57] LABS: Absolute Neutrophil Ct (ANC) 4.94 x10^3/uL (1.4-6.9); BASOPHIL % 0.3 % (0.0-0.4); Basophil (Absolute #) 0.02 x10^3/uL (0-0.4); Eosinophil (Absolute #) 0.07 x10^3/uL (0-0.5); Hematocrit 38.1 % (42-50); Hemoglobin 12.4 g/dL (12.5-18.0); IMMATURE GRAN # 0.03 x10^3u/L (0.00-0.03); IMMATURE GRAN % 0.4 % (0.00-0.4); Lymphocyte (Absolute #) 1.48 x10^3/uL (1.0-4.6); Mean Corpuscular Hemoglobin 31.2 pg (26-32); Mean Corpuscular Hgb Concent. 32.5 g/dL (32-36); Mean Platelet Volume 10.6 fL (7.5-11.0); Monocytes % 7.1 % (0.0-12.0); Neutrophil % 70.2 % (36.0-66.0); Platelet Count 212 x10^3/uL (150-450); Red Blood Count 3.97 x10^6/uL (4.1-5.6); Red Cell Distribution Width 12.9 % (11.5-14.0)
[2023-12-12 06:24] VITALS: RESP 15
[2023-12-12 06:33] LABS: ALBUMIN 3.6 g/dL (3.5-5.0); ANION GAP 12.7 MEQ/L (5-15); BILIRUBIN,TOTAL 0.8 mg/dL (0.2-1.3); Calcium 8.6 mg/dL (8.4-10.2); Creatinine 1 0.79 mg/dL (0.66-1.25); EST GLOMERULAR FILTRATION RATE 127.2 ML/MIN; Potassium 4.1 mmol/L (3.5-5.1); Total Protein 6.2 g/dL (6.3-8.2)
[2023-12-12 07:27] VITALS: BP 138/96; TEMP 98.7; O2SAT 97
--- NOTE | 2023-12-12 07:54 | PCM.DS ---
Discharge Summary Date of Admission: 12/11/23 00:37 Date of Discharge: 12/12/23 Admitting Physician: GAIL RODRIGUES DO Primary Care Provider: Unknown Provider Allergies Allergies No Known Drug Allergies Allergy (Verified 12/11/23 03:14) Hospital Summary - Hospital Course Hospital Course: is a 23 year old male with no past medical history, travelling from [place] to the area for work, and was brought in by EMS for AMS. His tried to call him all day and could not get in touch with him. So police went to the hotel for welfare check and found pt to be lethargic/altered. They found 2 "candy bars" at bedside - one was THC and the other was "mushroom". In ER, pt was lethargic but vital signs were normal and stable. He was able to maintain his airway. He was given IVF boluses, and he did come around some mentally. He did refused lewis catheter placement. Labs shows mildly elevated AST/ALT/Bili. UDS + THC. Etoh negative. CTs head and abdomen were negative.Poison control was contacted by ER physician. Pt received IP treatment with N-acetylcysteine (NAC). Labs have now stablilized, Patient is A&O x 4, poison control has cleared gabino polk for discharge. Patient is requesting discharge this morning as he is from [place] and has a young child at home. We will dismiss him today and advised follow up next week with PCP. Discharge Note New Diagnosis: Overdose New Medications: none Follow Up: PC Latest Assessment & Plan (1) Altered mental status Current Visit: Yes Status: Acute Assessment & Plan: Likely related to polysubstance abuse - THC and this unknown "mushroom". Supportive measures, VS q4hr, IVF. 12/11: -resolved Code(s): R41.82 - ALTERED MENTAL STATUS, UNSPECIFIED (2) Overdose Current Visit: Yes Status: Acute Assessment & Plan: THC + this unknown "mushroom" candy. Supportive measures. And given hepatotoxicity, poison control recommended treatment with eather activeted charcoal and or NAC. ER physician is in contact with poison control, and said they will be sending these meds over with the recommended doses. Meanwhile, continue supportive measures, IVF, and monitoring of LFTs 12/11:-received NAC, labs improved, patient A&O x 4, poison control has cleared patient for discharge. Code(s): T50.901A - POISONING BY UNSP DRUG/MEDS/BIOL SUBST, ACCIDENTAL, INIT (3) Hepatotoxicity Current Visit: Yes Status: Acute Assessment & Plan: AST 140-160s, ALT 220->312, Bili 1.8->1.6. AP normal. CK normal. CT abd normal. Monitor LFTs 12/11: -marked improvement, Alt remains elevated at 223 but improved, all other LFT WNL, advised follow up with PCP Code(s): K71.9 - TOXIC LIVER DISEASE, UNSPECIFIED (4) Leukocytosis Current Visit: Yes Status: Acute Assessment & Plan: WBC 12s. Likely a stress response. No obvious sign of infection. UA clear 12/11: -Resolved Code(s): D72.829 - ELEVATED WHITE BLOOD CELL COUNT, UNSPECIFIED (5) Tetrahydrocannabinol (THC) use disorder, mild, abuse Current Visit: Yes Status: Acute Assessment & Plan: UDS + THC, supportive measures. Counseled on cessation Code(s): F12.10 - CANNABIS ABUSE, UNCOMPLICATED I spent 35 minutes [id number] with the patient on the day of discharge performing discharge exam, discussing hospital stay and discharge instructions with patient and caregivers, preparation of discharge records, prescriptions & referral forms and addressing any questions/concerns the patient had as documented above. - Vitals & Intake/Output Vital Signs: Vital Signs Temperature 98.7 F 12/12/23 07:27 Pulse Rate 68 12/12/23 07:27 Respiratory Rate 15 12/12/23 07:27 Blood Pressure 138/96 12/12/23 07:27 O2 Sat by Pulse Oximetry 97 12/12/23 07:27 Intake & Output: Intake & Output 12/09/23 12/10/23 12/11/23 12/12/23 11:59 11:59 11:59 11:59 Intake Total 1127 4934 Output Total 1550 900 Balance -423 4034 Weight 111.3 kg 115.1 kg - Lab Result Diagrams: 12/12/23 05:11 12/12/23 05:11 Lab Results-Last 24 Hrs: Lab Results-Last 24 Hours 12/11/23 12/11/23 12/12/23 Range/Units 22:30 22:30 05:11 WBC 7.0 (4.0-10.5) x10^3/uL RBC 3.97 L (4.1-5.6) x10^6/uL Hgb 12.4 L (12.5-18.0) g/dL Hct 38.1 L (42-50) % MCV 96.0 (78-100) fL MCH 31.2 (26-32) pg MCHC 32.5 (32-36) g/dL RDW 12.9 (11.5-14.0) % Plt Count 212 (150-450) x10^3/uL MPV 10.6 (7.5-11.0) fL Gran % 70.2 H (36.0-66.0) % Immature Gran % (Auto) 0.4 (0.00-0.4) % Nucleat RBC Rel Count 0.0 (0.00-0.1) % Eos # (Auto) 0.07 (0-0.5) x10^3/uL Immature Gran # (Auto) 0.03 (0.00-0.03) x10^3u/L Absolute Lymphs (auto) 1.48 (1.0-4.6) x10^3/uL Absolute Monos (auto) 0.50 (0.0-1.3) x10^3/uL Absolute Nucleated RBC 0.00 (0.00-0.01) x10^3u/L Lymphocytes % 21.0 L (24.0-44.0) % Monocytes % 7.1 (0.0-12.0) % Eosinophils % 1.0 (0.00-5.0) % Basophils % 0.3 (0.0-0.4) % Absolute Granulocytes 4.94 (1.4-6.9) x10^3/uL Basophils # 0.02 (0-0.4) x10^3/uL PT 10.9 (9.4-12.5) SECONDS INR 1.00 (0.8-3.0) Sodium 142 (135-145) mmol/L Potassium 3.4 L (3.5-5.1) mmol/L Chloride 111 H (98-107) mmol/L Carbon Dioxide 23 (22-30) mmol/L Anion Gap 10.8 (5-15) MEQ/L BUN 14 (9-20) mg/dL Creatinine 0.76 (0.66-1.25) mg/dL Estimated GFR 128.7 ML/MIN Glucose 123 H (74-106) mg/dL Calcium 8.5 (8.4-10.2) mg/dL Total Bilirubin 0.90 (0.2-1.3) mg/dL AST 60 H (17-59) U/L ALT 233 H (0-50) U/L Alkaline Phosphatase 53 (38-126) U/L Serum Total Protein 6.0 L (6.3-8.2) g/dL Albumin 3.5 (3.5-5.0) g/dL Acetaminophen < 10 L (10-30) ug/ml 12/12/23 Range/Units 05:11 WBC (4.0-10.5) x10^3/uL RBC (4.1-5.6) x10^6/uL Hgb (12.5-18.0) g/dL Hct (42-50) % MCV (78-100) fL MCH (26-32) pg MCHC (32-36) g/dL RDW (11.5-14.0) % Plt Count (150-450) x10^3/uL MPV (7.5-11.0) fL Gran % (36.0-66.0) % Immature Gran % (Auto) (0.00-0.4) % Nucleat RBC Rel Count (0.00-0.1) % Eos # (Auto) (0-0.5) x10^3/uL Immature Gran # (Auto) (0.00-0.03) x10^3u/L Absolute Lymphs (auto) (1.0-4.6) x10^3/uL Absolute Monos (auto) (0.0-1.3) x10^3/uL Absolute Nucleated RBC (0.00-0.01) x10^3u/L Lymphocytes % (24.0-44.0) % Monocytes % (0.0-12.0) % Eosinophils % (0.00-5.0) % Basophils % (0.0-0.4) % Absolute Granulocytes (1.4-6.9) x10^3/uL Basophils # (0-0.4) x10^3/uL PT (9.4-12.5) SECONDS INR (0.8-3.0) Sodium 142 (135-145) mmol/L Potassium 4.1 D (3.5-5.1) mmol/L Chloride 111 H (98-107) mmol/L Carbon Dioxide 22 (22-30) mmol/L Anion Gap 12.7 (5-15) MEQ/L BUN 16 (9-20) mg/dL Creatinine 0.79 (0.66-1.25) mg/dL Estimated GFR 127.2 ML/MIN Glucose 108 H (74-106) mg/dL Calcium 8.6 (8.4-10.2) mg/dL Total Bilirubin 0.80 (0.2-1.3) mg/dL AST 49 (17-59) U/L ALT 223 H (0-50) U/L Alkaline Phosphatase 53 (38-126) U/L Serum Total Protein 6.2 L (6.3-8.2) g/dL Albumin 3.6 (3.5-5.0) g/dL Acetaminophen (10-30) ug/ml Micro Results-Entire Visit: Microbiology 12/10/23 16:18 Urine Culture - Preliminary Catherized NO GROWTH TO DATE - Radiology Exams Ordered Rad Exams-Entire Visit: Radiology Procedures Category Date Time Status ABDOMEN AND PELVIS W/0 CONTRAS [CT] Stat Exams 12/10/23 18:58 Completed HEAD WITHOUT CONTRAST [CT] Stat Exams 12/10/23 16:08 Completed - Procedures and Test Procedures and Tests throughout Hospitalization: Therapy Orders & Screens 12/11/23 00:39 EKG REPEAT IN AM Comment: Discharge Exam General Appearance: no apparent distress Neurologic Exam: alert, oriented x 3, cooperative Eye Exam: PERRL Ears, Nose, Throat Exam: normal ENT inspection Neck Exam: normal inspection Respiratory Exam: normal breath sounds, lungs clear Cardiovascular Exam: regular rate/rhythm, normal heart sounds Gastrointestinal/Abdomen Exam: soft, normal bowel sounds Male Genitalia Exam: deferred Rectal Exam: deferred Back Exam: normal inspection Extremity Exam: normal inspection Skin Exam: normal color - Discharge Disposition: Home, Self-Care Condition: Stable Prescriptions: Continue No Reportable Medications [No Reported Medications] Follow up with: Provider,Unknown [Primary Care Provider] -
[2023-12-12 08:54] VITALS: PULSE 65
== END 2023-12-12 08:44 | disposition home or self-care (01) ==
LOC: ED 15:59 → ICU 12-11 00:37
PROVIDERS: ADMIT Internal Medicine; ATTEND Internal Medicine
DX: R41.82 Altered mental status, unspecified (principal); T40.714A Poisoning by cannabis, undetermined, initial encounter; T62.0X4A Toxic effect of ingested mushrooms, undetermined, initial encounter; K71.9 Toxic liver disease, unspecified; D72.829 Elevated white blood cell count, unspecified; F12.10 Cannabis abuse, uncomplicated; Z20.828 Contact with and (suspected) exposure to other viral communicable diseases
CPT/HCPCS: 0241U; 36000; 36415; 70450; 74176; 80053; 80143; 80179; 80307; 81001; 82077; 82140; 82550; 85025; 85610; 87086; 93005; 93041; 93268; 96360; 96374; 99285; 99291; G0378; P9612; Q3014; J0132; J1650; J2405; A9270-GY